=== PATIENT | male | born 1945 | race Caucasian/White ===

== ENCOUNTER → 2019-06-14 | Day surgery (SDC) | payer MEDICARE, OTHER ==
[~2019-06-14] MED LIST: ACETAMINOPHEN 325 MG TABLET PO PRN; ALBUTEROL SULFATE 2.5 MG/3 ML NEBU. NEB PRN; AMLO5TAB4 PO; ASPI81TA59 PO; ATOR20TA PO; ATROPINE 0.5 MG/5 ML DISP.SYRIN. IV PRN; IV RINGERS SOLUTION,LACTATED 1,000 ML IV SCH; ONDANSETRON PF 4 MG/2 ML VIAL. IV PRN; PROPOFOL 40 ML IV ONE; VALS320T2 PO; diphenhydrAMINE 50 MG/ML VIAL IV PRN
[2019-06-14 09:23] VITALS: BP 135/90
--- NOTE | 2019-06-15 17:10 | PATHOLOGY ---
[facility] Accession Number: [id number] . 01 Material submitted: . PART A: colon - ASCENDING POLYP. Modifiers: ascending PART B: sigmoid colon - SIGMOID POLYP . 01 Clinical history: . None provided . 02 Diagnosis: A. Colon biopsy, ascending colon polyp: - Tubular adenoma. . B. Colon biopsy, sigmoid colon polyp: - Tubular adenoma. LBQ 06/15/2019 1339 Local . 02 Comment: There is no high grade dysplasia or evidence of malignancy. (JPM/db; 06/15/2019) . 02 Electronically signed: . Romain Watkins MD, Pathologist NPI- [id number] . 01 Gross description: . A. The specimen is received in formalin, labeled "Fabien Smith III, ascending". Received is a segment of pale leigh soft tissue measuring 0.3 cm in maximum dimensions. The specimen is submitted entirely in cassette A1. . B. The specimen is received in formalin, labeled "Fabien Smith III, sigmoid polyp". Received is a segment of pale leigh soft tissue measuring 0.6 cm in maximum dimensions. The specimen is submitted entirely in cassette B1. (CAA; 06/14/2019) QAC/QAC 06/14/2019 1649 Local . 02 Pathologist provided ICD-10: D12.2, D12.5 . 02 CPT . 653804, [id number] Specimen Comment: A courtesy copy of this report has been sent to [phone], [phone] Specimen Comment: [id number] Specimen Comment: Report sent to / DR RODRIGUEZ Performed at: [address], [place], [place] [id number] MD Nick Mosley MD Phone: [phone] Performed at: [address] [id number] MD Romain Watkins MD Phone: [phone]
== END ==
LOC: SURG 07:02
PROVIDERS: ATTEND Emergency Medicine
DX: R19.5 Other fecal abnormalities (principal); D12.2 Benign neoplasm of ascending colon; D12.5 Benign neoplasm of sigmoid colon; K57.30 Diverticulosis of large intestine without perforation or abscess without bleeding; Z79.82 Long term (current) use of aspirin; Z86.010 Personal history of colon polyps; Z95.0 Presence of cardiac pacemaker; Z98.890 Other specified postprocedural states
CPT/HCPCS: 45380; 45385; 88305; J2704; J7120